=== PATIENT | male | born 1965 | race American Indian/Alaskan Native ===

== ENCOUNTER 2020-05-31 11:05 | Emergency (ER) | payer BC ==
[2020-05-31] MEDS ORDERED: Sodium Chloride 0.9% 10 ML Syringe FLUSH PRN (11:22)
[2020-05-31] MEDS ORDERED: Iopamidol 755 Mg/ML 100 ML Bottle IVPUSH ONE (11:26)
[2020-05-31] MEDS ORDERED: Dexamethasone 4 MG/ML SDV IVPUSH ONE (11:51)
[2020-05-31] MEDS ORDERED: Heparin Sodium 5,000 Units/ML Vial IVPUSH ONE (11:53)
[2020-05-31] MEDS ORDERED: Morphine 2 MG/ML SYRINGE IVPUSH ONE (11:59)
[2020-05-31] MEDS ORDERED: Heparin Sodium/0.45% NaCl 25,000 UNITS/500 ML BAG IV SCH (12:00)
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
--- NOTE | 2020-05-31 12:13 | CT ---
EXAMINATION: Chest w Cont SEX: Male AGE: 55 years CLINICAL HISTORY: 55-year-old 185 pound male with hemoptysis complaining of shortness of breath (SOB) whose serum D dimer is greater than 3000. "DVT right lower extremity 6 years ago". Scan technique: Volume acquisition of data from the chest (bony thorax, lungs and mediastinum) obtained during the intravenous infusion 69 cc nonionic Isovue 370 contrast at 5 cc/s via injector while lying supine on the Siemens multislice scanner [place], [place]. All data archived in the PACS system for storage, reformatting axial/sagittal/coronal planes and study. Interpretation: Markedly abnormal. Extensive thrombosis involving the proximal pulmonary arteries, bilaterally. 1. Large intraluminal filling defects (thrombus) evolving main pulmonary artery segments bilaterally with associated peripheral groundglass consolidation/pleural effusions ([place] Sign) suggesting infarct. 2. Prominent cardiac silhouette but no pulmonary vascular congestion, cephalization of flow or alveolar edema. No pericardial effusions. 3. No suspicious lung nodule or mass lesion. No hilar or mediastinal lymphadenopathy. 4. No focal lobar alveolar consolidation, air bronchograms or other "groundglass" lung densities. 5. No pneumothorax or pneumomediastinum. 6. Normal caliber thoracic aorta. 7. Mild kyphosis. Multilevel thoracic disc disease and hypertrophic spondylosis. CONCLUSION: PULMONARY EMBOLISM/INFARCT. (Emergency room physician notified immediately)
[2020-05-31 12:41] LABS: ANION GAP 15.3 mEq/L (7-13); CHLORIDE,CL 95 mmol/L (98-107); SODIUM,NA 133 mmol/L (136-145)
== END 2020-05-31 13:01 ==
LOC: DL.ED 11:05
DX: I26.99 Other pulmonary embolism without acute cor pulmonale (principal); Z20.822 Contact with and (suspected) exposure to COVID-19
CPT/HCPCS: 36415; 71260; 80053; 82550; 82728; 83605; 83615; 83880; 84484; 85025; 85610; 85730; 86140; 87040; 87635; 96365; 96375; 99285; J1100; J1644; J2270; Q9967; U0002

== ENCOUNTER 2020-06-30 15:24 | Emergency (ER) | payer BC ==
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
[2020-06-30] MEDS ORDERED: Sodium Chloride 0.9% 10 ML Syringe FLUSH PRN (15:29)
--- NOTE | 2020-06-30 15:50 | CT ---
EXAMINATION: Head wo Cont SEX: Male AGE: 55 years CLINICAL HISTORY: 55-year-old male with heparin-induced (treatment for DVT and PE) thrombocytopenia who has noted LEFT ARM WEAKNESS over the past week. STROKE CODE. No comparisons. Scan technique: Volume acquisition of data emergency unenhanced CT scan of the head and brain obtained with the patient lying supine on the Siemens multislice scanner [place], [place]. All data archived in the PACS system for storage, reformatting axial/sagittal/coronal planes and study (bone/brain windows). Interpretation: Subtle abnormality right cerebral hemisphere. 1. Uniformly thick bony calvarium without sign of pathologic skeletal lesion or skull fracture. 2. No underlying brain contusion. No abnormal extracerebral/intracranial epidural or subdural hematoma. 3. No supratentorial or posterior fossa mass lesion. 4. Symmetric clear pneumatization of the paranasal and mastoid sinuses. 5. *Subtle asymmetric focus of decreased attenuation right parietal lobe. No other focal areas of edema or microvascular ischemic infarct. 6. No sign of acute intracerebral, intraventricular or subarachnoid bleed. CONCLUSION: Subtle microvascular ischemic change right parietal lobe. No sign of intracranial mass, hydrocephalus or bleed.
[2020-06-30 16:32] LABS: ANION GAP 13.9 mEq/L (7-13); CHLORIDE,CL 101 mmol/L (98-107); SODIUM,NA 137 mmol/L (136-145)
[2020-06-30] MEDS ORDERED: HYDROmorphone 1 MG/ML Syringe IVPUSH ONE (16:42)
[2020-06-30 17:38] LABS: PTT,PARTIAL THROMBOPLSTIN TIME 26.3 SEC (22.0-34.0)
== END 2020-06-30 17:20 ==
LOC: DL.ED 15:24
DX: I63.9 Cerebral infarction, unspecified (principal); D75.82 Heparin induced thrombocytopenia (HIT); Z86.711 Personal history of pulmonary embolism
CPT/HCPCS: 36415; 70450; 80053; 80307; 83880; 84484; 85025; 85610; 85730; 93005; 96374; 99285; J1170; 93010

== ENCOUNTER 2022-12-19 14:21 | Emergency (ER) | payer BC | END 2022-12-19 16:18 | disposition home or self-care (01) | LOC: DL.ED 14:21 | DX: I82.511 Chronic embolism and thrombosis of right femoral vein (principal) | CPT/HCPCS: 93971; 99283; 99284 ==

== ENCOUNTER 2024-12-17 12:00 | Emergency (ER) | payer BC ==
[2024-12-17] MEDS ORDERED: Sodium Chloride 0.9% 10 ML Syringe FLUSH PRN (12:10)
[2024-12-17] MEDS: Ondansetron 4 MG/2 ML SDV IVPUSH ONE ×2 (12:25→12:52)
[2024-12-17 12:35] LABS: BASOPHILS PERCENT AUTO 0.3 % (0.0-1.0); EOSINOPHILS PERCENT AUTO 0.3 % (1.0-3.0); LYMPHOCYTES PERCENT AUTO 14.4 % (20.5-50.1); MONOCYTES PERCENT AUTO 12.8 % (2-8); NEUTROPHILS PERCENT AUTO 72.2 % (42.2-75.2); PLATELET COUNT,PLT 235 10^3/uL (150-450); RED BLOOD CELL COUNT 5.37 10^6/uL (4.6-6.2); WHITE BLOOD CELL COUNT,WBC 11.9 10^3/uL (5.0-10.0)
[2024-12-17] MEDS: Ketorolac 30 MG/ML SDV IVPUSH ONE (12:40)
[2024-12-17 12:51] LABS: INR 1.3 (0.9-1.2); PTT,PARTIAL THROMBOPLSTIN TIME 26.7 SEC (22.0-34.0)
[2024-12-17 13:00] LABS: D-DIMER QUANTITATIVE 4120.0 ng/mL (0-400)
[2024-12-17 13:06] LABS: ALANINE AMINOTRANSFERASE,ALT 9.0 U/L (16-63); ASPARTATE AMNIOTRANSFERASE,AST 6.0 U/L (15-37); BILIRUBIN TOTAL 0.6 mg/dL (0.2-1.0); BLOOD UREA NITROGEN,BUN 10.0 mg/dL (7-18); CARBON DIOXIDE,CO2 29.0 mmol/L (21-32); CHLORIDE,CL 102.0 mmol/L (98-107); CREATININE 1.2 mg/dL (0.70-1.30); EST CRCL DRUG DOSING (CG) 59.07 mL/min; GLUCOSE RANDOM 82.0 mg/dL (70-99); POTASSIUM,K 3.8 mmol/L (3.5-5.1); PROTEIN TOTAL,TP 8.2 g/dL (6.4-8.2); SODIUM,NA 139.0 mmol/L (136-145)
[2024-12-17 13:07] LABS: LACTIC ACID 3.2 mmol/L (0.4-2.0)
[2024-12-17 13:07] LABS: A/G RATIO 0.61; ESTIMATED GFR 69.0 mL/min (>=60)
[2024-12-17] MEDS: Iopamidol 612 MG/ML 100 ML Bottle IVPUSH ONE (13:54)
[2024-12-17] MEDS ORDERED: Heparin Sodium 5,000 Units/ML Vial IVPUSH ONE (14:17)
[2024-12-17] MEDS ORDERED: Heparin Sodium 5,000 Units/ML Vial IV ONE (14:30)
[2024-12-17] MEDS ORDERED: Heparin Sodium/0.45% NaCl 25,000 UNITS/500 ML BAG IV SCH (14:30)
[2024-12-17 14:32] LABS: B-TYPE NATRIURETIC PEPTIDE,BNP 529.0 pg/ml (0-100)
== END 2024-12-17 15:28 ==
LOC: DL.ED 12:00
DX: I26.99 Other pulmonary embolism without acute cor pulmonale (principal); Z88.5 Allergy status to narcotic agent; Z79.01 Long term (current) use of anticoagulants; Z79.899 Other long term (current) drug therapy
CPT/HCPCS: 36415; 71045; 71260; 74177; 80053; 83605; 83880; 84145; 84484; 85025; 85379; 85610; 85730; 87040; 87428; 93005; 96361; 96365; 96375; 96376; 99285; J1171; J1885; J2405; J2543; J7030; Q9967; 93010